=== PATIENT | female | born 1990 | race Caucasian/White ===

== ENCOUNTER 2016-11-10 18:38 | Emergency (ER) | payer MEDICAID | END 2016-11-10 22:21 | disposition home or self-care (01) | LOC: D.ER 18:38 | DX: J06.9 Acute upper respiratory infection, unspecified (principal); M51.36 Other intervertebral disc degeneration, lumbar region ==

== ENCOUNTER 2016-11-30 15:10 | Emergency (ER) | payer MEDICAID | END 2016-11-30 16:20 | disposition home or self-care (01) | LOC: D.ER 15:10 | DX: M54.5 Low back pain (principal); M54.10 Radiculopathy, site unspecified; M51.36 Other intervertebral disc degeneration, lumbar region ==

== ENCOUNTER 2017-09-14 12:04 | Emergency (ER) | payer SELFPAY ==
[2017-09-14 12:48] LABS: BASOPHILS 0.5 % (0-2); EOSINOPHILS 1.3 % (0-7); HEMATOCRIT 43.8 % (36.0-48.0); HEMOGLOBIN 14.8 g/dL (12-16); IMMATURE GRANULOCYTES 0.1 % (0-5); LYMPHOCYTES 30.3 % (15-50); MCH 29.7 pg (26.0-34.0); MCHC 33.8 g/dL (31.0-37.0); MEAN PLATELET VOLUME 10.2 fL (7.4-10.4); MONOCYTES 7.9 % (2-11); NEUTROPHILS 59.9 % (40-80); PLATELET COUNT 220 10x3/uL (130-400); RBC 4.98 10x6/uL (4.00-5.40); RDW 12.6 % (11.5-14.5); WBC 7.9 10x3/uL (4.8-10.8)
[2017-09-14 13:05] LABS: HCG SERUM NEGATIVE (NEGATIVE)
[2017-09-14 13:12] LABS: ALBUMIN 3.6 g/dL (3.4-5.0); ALKALINE PHOSPHATASE 62 U/L (46-116); ALT (SGPT) 25 U/L (10-68); BILIRUBIN - TOTAL 0.37 mg/dL (0.2-1.3); CALC OSMOLALITY 281 mosm/kg (275-300); CARBON DIOXIDE 26.8 mmol/L (21.0-32.0); CHLORIDE - SERUM 106 mmol/L (98-107); CREATININE - SERUM 0.8 mg/dL (0.6-1.3); GLUCOSE 92 mg/dL (74-106); POTASSIUM - SERUM 4.2 mmol/L (3.5-5.1); PROTEIN - SERUM 7.6 g/dL (6.4-8.2); SODIUM 142 mmol/L (136-145); UREA NITROGEN 11 mg/dL (7-18); eGFR NON AFRICAN AMERICAN 90 mL/min (90-120)
[2017-09-14 13:24] LABS: CKMB 0.2 U/L (0.0-3.6); CREATINE KINASE 47 UL (21-215); TROPONIN-I < 0.017 ng/mL (0.000-0.060)
[2017-09-14 13:39] LABS: UDS - AMPHET NEGATIVE QUAL (NEGATIVE); UDS - BARB NEGATIVE QUAL (NEGATIVE); UDS - BENZO NEGATIVE QUAL (NEGATIVE); UDS - COCAINE NEGATIVE QUAL (NEGATIVE); UDS - OPIATE NEGATIVE QUAL (NEGATIVE); UDS - PCP NEGATIVE QUAL (NEGATIVE); UDS - THC POSITIVE QUAL (NEGATIVE)
[2017-09-14 13:47] LABS: APPEARANCE CLEAR (CLEAR); BACTERIA MODERATE /hpf (NONE SEEN); BILIRUBIN NEGATIVE (NEGATIVE); COLOR YELLOW (YELLOW); EPITHELIAL CELLS 0-5 /hpf (0-5); GLUCOSE NEGATIVE (NEGATIVE); KETONE NEGATIVE (NEGATIVE); MUCUS >1+ /lpf (NONE SEEN); NITRITE NEGATIVE (NEGATIVE); PROTEIN NEGATIVE (NEGATIVE); RED CELLS - URINE OCC /hpf (0-5); UROBILINOGEN NORMAL (NORMAL); WHITE CELLS - URINE OCC /hpf (0-5)
== END 2017-09-14 14:50 | disposition home or self-care (01) ==
LOC: D.ER 12:04
PROVIDERS: Family Medicine
DX: R55 Syncope and collapse (principal); S06.0X9A Concussion with loss of consciousness of unspecified duration, initial encounter; X58.XXXA Exposure to other specified factors, initial encounter; Y93.89 Activity, other specified; Y92.029 Unspecified place in mobile home as the place of occurrence of the external cause

== ENCOUNTER 2017-10-04 09:06 | Emergency (ER) | payer BC | END 2017-10-04 10:50 | disposition home or self-care (01) | LOC: D.ER 09:06 | DX: M54.16 Radiculopathy, lumbar region (principal) ==

== ENCOUNTER 2017-11-01 23:31 | Emergency (ER) | payer SELFPAY | END 2017-11-01 23:54 | disposition home or self-care (01) | LOC: D.ER 23:31 | DX: J11.1 Influenza due to unidentified influenza virus with other respiratory manifestations (principal); F17.200 Nicotine dependence, unspecified, uncomplicated; R05 Cough ==

== ENCOUNTER 2018-01-16 19:50 | Emergency (ER) | payer SELFPAY ==
[2018-01-16 20:35] LABS: HCG URINE NEGATIVE (NEGATIVE)
== END 2018-01-17 00:09 | disposition home or self-care (01) ==
LOC: D.ER 19:50
PROVIDERS: Emergency Medicine
DX: S83.8X1A Sprain of other specified parts of right knee, initial encounter (principal); X58.XXXA Exposure to other specified factors, initial encounter; Y93.89 Activity, other specified; Y92.019 Unspecified place in single-family (private) house as the place of occurrence of the external cause; F17.200 Nicotine dependence, unspecified, uncomplicated

== ENCOUNTER 2018-04-11 11:12 | Emergency (ER) | payer BC ==
[~2018-04-11] VITALS: Ht 165.1 cm; Wt 100.0 kg
[2018-04-11 11:26] VITALS: Ht 165.1 cm; Wt 100.0 kg
[2018-04-11] MEDS ORDERED: NAPROXEN250 MG (11:35)
[2018-04-11 12:42] LABS: HCG URINE NEGATIVE (NEGATIVE)
[2018-04-11] MEDS ORDERED: HYDROCODON-ACE1 EAC7 PO (13:47)
[2018-04-11] MEDS ORDERED: CYCLOBENZAPRINE10 MG PO (13:47)
[2018-04-11 14:12] VITALS: BP 124/67
== END 2018-04-11 14:12 | disposition home or self-care (01) ==
LOC: D.ER 11:12
PROVIDERS: Family Medicine
DX: M54.5 Low back pain (principal); M25.561 Pain in right knee; W01.0XXA Fall on same level from slipping, tripping and stumbling without subsequent striking against object, initial encounter; Y93.01 Activity, walking, marching and hiking; Y92.89 Other specified places as the place of occurrence of the external cause; F17.200 Nicotine dependence, unspecified, uncomplicated

== ENCOUNTER 2018-08-26 16:47 | Emergency (ER) | payer BC ==
[~2018-08-26] VITALS: Ht 165.1 cm; Wt 84.1 kg
[~2018-08-26 16:47] MED LIST: CYCLOBENZAPRINE10 MG PO; HYDROCODON-ACE1 EAC7 PO; NAPROXEN250 MG
[2018-08-26 17:15] VITALS: Ht 165.1 cm; Wt 84.1 kg
[2018-08-26 17:45] LABS: BASOPHILS 0.4 % (0-2); EOSINOPHILS 2.5 % (0-7); HEMATOCRIT 43.7 % (36.0-48.0); IMMATURE GRANULOCYTES 0.1 % (0-5); LYMPHOCYTES 46.1 % (15-50); MCH 30.5 pg (26.0-34.0); MCHC 34.3 g/dL (31.0-37.0); MCV 88.8 fL (80.0-100.0); MEAN PLATELET VOLUME 10.2 fL (7.4-10.4); MONOCYTES 8.2 % (2-11); NEUTROPHILS 42.7 % (40-80); PLATELET COUNT 202 10x3/uL (130-400); RBC 4.92 10x6/uL (4.00-5.40); RDW 12.4 % (11.5-14.5); WBC 7.7 10x3/uL (4.8-10.8)
[2018-08-26 17:47] LABS: APPEARANCE CLEAR (CLEAR); BILIRUBIN NEGATIVE (NEGATIVE); COLOR DK YELLOW (YELLOW); GLUCOSE NEGATIVE (NEGATIVE); KETONE NEGATIVE (NEGATIVE); NITRITE NEGATIVE (NEGATIVE); PROTEIN NEGATIVE (NEGATIVE); UROBILINOGEN NORMAL (NORMAL)
[2018-08-26 17:53] LABS: EPITHELIAL CELLS 0-5 /hpf (0-5); RED CELLS - URINE 0-5 /hpf (0-5); WHITE CELLS - URINE 0-5 /hpf (0-5)
[2018-08-26 17:54] LABS: BACTERIA FEW /hpf (NONE SEEN)
[2018-08-26 17:55] LABS: HCG URINE NEGATIVE (NEGATIVE)
[2018-08-26 18:53] LABS: ALBUMIN 3.4 g/dL (3.4-5.0); ALKALINE PHOSPHATASE 59 U/L (46-116); ALT (SGPT) 26 U/L (10-68); AMYLASE - SERUM 57 U/L (25-115); BILIRUBIN - TOTAL 0.37 mg/dL (0.2-1.3); CALC OSMOLALITY 272 mosm/kg (275-300); CALCIUM 8.7 mg/dL (8.5-10.1); CARBON DIOXIDE 29.4 mmol/L (21.0-32.0); CHLORIDE - SERUM 101 mmol/L (98-107); CREATININE - SERUM 0.8 mg/dL (0.6-1.3); GLUCOSE 77 mg/dL (74-106); LIPASE 165 U/L (73-393); POTASSIUM - SERUM 3.8 mmol/L (3.5-5.1); PROTEIN - SERUM 8.2 g/dL (6.4-8.2); SODIUM 138 mmol/L (136-145); UREA NITROGEN 8 mg/dL (7-18); eGFR NON AFRICAN AMERICAN 89 mL/min (90-120)
[2018-08-26] MEDS ORDERED: TORADOL10 MG PO (21:04)
[2018-08-26] MEDS ORDERED: ZOFRAN8 MG PO (21:04)
[2018-08-26] MEDS ORDERED: OMEPRAZOLE40 MG PO (21:05)
[2018-08-26 21:49] VITALS: BP 129/74
== END 2018-08-26 21:35 | disposition home or self-care (01) ==
LOC: D.ER 16:47
PROVIDERS: Emergency Medicine
DX: R10.11 Right upper quadrant pain (principal); K80.20 Calculus of gallbladder without cholecystitis without obstruction; K21.9 Gastro-esophageal reflux disease without esophagitis; H91.91 Unspecified hearing loss, right ear; F17.200 Nicotine dependence, unspecified, uncomplicated

== ENCOUNTER 2018-09-12 06:25 | Day surgery (SDC) | payer BC ==
[2018-09-11 11:41] LABS: HEMOGLOBIN 15.7 g/dL (12-16); MCH 30.9 pg (26.0-34.0); MCHC 34.9 g/dL (31.0-37.0); MCV 88.6 fL (80.0-100.0); MEAN PLATELET VOLUME 10.1 fL (7.4-10.4); RBC 5.08 10x6/uL (4.00-5.40); RDW 12.5 % (11.5-14.5); WBC 8.2 10x3/uL (4.8-10.8)
[~2018-09-12] VITALS: Ht 165.1 cm; Wt 83.0 kg
[~2018-09-12 06:25] MED LIST changes: +OMEPRAZOLE40 MG PO; +TORADOL10 MG PO; +VALTREX500 MG PO; +ZOFRAN8 MG PO
[2018-09-12 06:45] VITALS: BP 123/85; Ht 165.1 cm; Wt 83.0 kg
[2018-09-12 09:12] LABS: HCG URINE NEGATIVE (NEGATIVE)
[2018-09-12] MEDS ORDERED: HYDROCODON-ACE1 EAC7 PO (11:38)
== END 2018-09-12 14:15 | disposition home or self-care (01) ==
LOC: D.OPS 06:25 → D.PAN 10:00 → D.OPS 10:00
PROVIDERS: Anesthesiology; Surgery
DX: K80.10 Calculus of gallbladder with chronic cholecystitis without obstruction (principal); Z01.812 Encounter for preprocedural laboratory examination

== ENCOUNTER 2018-12-06 08:41 | Emergency (ER) | payer BC ==
[~2018-12-06] VITALS: Ht 165.1 cm; Wt 79.5 kg
[2018-12-06 08:52] VITALS: Ht 165.1 cm; Wt 79.5 kg
[2018-12-06] MEDS ORDERED: AMOXICILLIN500 M1 PO (09:05)
[2018-12-06 10:05] VITALS: BP 118/77
== END 2018-12-06 10:06 | disposition home or self-care (01) ==
LOC: D.ER 08:41
DX: J02.9 Acute pharyngitis, unspecified (principal); J06.9 Acute upper respiratory infection, unspecified; R50.9 Fever, unspecified; R51 Headache; F17.200 Nicotine dependence, unspecified, uncomplicated

== ENCOUNTER 2019-02-05 10:34 | Emergency (ER) | payer MEDICAID ==
[~2019-02-05] VITALS: Ht 165.1 cm; Wt 72.7 kg
[~2019-02-05 10:34] MED LIST changes: +AMOXICILLIN500 M1 PO
[2019-02-05 10:39] VITALS: BP 120/65; Ht 165.1 cm; Wt 72.7 kg
[2019-02-05] MEDS ORDERED: FLAGYL500 MG PO (11:09)
[2019-02-05 11:16] LABS: APPEARANCE CLEAR (CLEAR); COLOR YELLOW (YELLOW); SPECIFIC GRAVITY 1.005 (1.005-1.020)
[2019-02-05 11:17] LABS: BILIRUBIN NEGATIVE (NEGATIVE); GLUCOSE NEGATIVE (NEGATIVE); KETONE NEGATIVE (NEGATIVE); NITRITE NEGATIVE (NEGATIVE); PROTEIN NEGATIVE (NEGATIVE); UROBILINOGEN NORMAL (NORMAL)
== END 2019-02-05 11:22 | disposition home or self-care (01) ==
LOC: D.ER 10:34
PROVIDERS: Family Medicine
DX: Z20.2 Contact with and (suspected) exposure to infections with a predominantly sexual mode of transmission (principal)

== ENCOUNTER 2019-11-27 10:01 | Emergency (ER) | payer OTHER ==
[~2019-11-27] VITALS: Ht 165.1 cm; Wt 79.5 kg
[~2019-11-27 10:01] MED LIST changes: +FLAGYL500 MG PO
[2019-11-27 10:21] VITALS: BP 154/81; Ht 165.1 cm; Wt 79.5 kg
[2019-11-27] MEDS ORDERED: HYDROCODON-ACE1 EA10 PO (10:46)
[2019-11-27] MEDS ORDERED: CLEOCIN HCL300 MG PO (10:47)
== END 2019-11-27 11:06 | disposition home or self-care (01) ==
LOC: D.ER 10:01
DX: K04.7 Periapical abscess without sinus (principal); S02.5XXA Fracture of tooth (traumatic), initial encounter for closed fracture

== ENCOUNTER 2020-05-15 22:40 | Emergency (ER) | payer OTHER ==
[~2020-05-15] VITALS: Ht 165.1 cm; Wt 75.0 kg
[~2020-05-15 22:40] MED LIST changes: +CLEOCIN HCL300 MG PO; +HYDROCODON-ACE1 EA10 PO
[2020-05-15 22:54] VITALS: Ht 165.1 cm; Wt 75.0 kg
[2020-05-15 23:54] VITALS: BP 119/65
== END 2020-05-15 23:55 | disposition home or self-care (01) ==
LOC: D.ER 22:40
DX: M77.11 Lateral epicondylitis, right elbow (principal); M54.9 Dorsalgia, unspecified; G89.29 Other chronic pain

== ENCOUNTER 2021-03-23 05:04 | Emergency (ER) | payer OTHER ==
[2020-08-22 02:10] VITALS: Ht 165.1 cm; Wt 84.1 kg
[~2021-03-23] VITALS: Ht 165.1 cm; Wt 84.1 kg
[~2021-03-23 05:04] MED LIST changes: +MACROBID100 MG PO; +NAPROSYN500 MG PO
[2021-03-23 05:08] VITALS: BP 147/71
== END 2021-03-23 06:25 | disposition home or self-care (01) ==
LOC: D.ER 05:04
DX: S61.216A Laceration without foreign body of right little finger without damage to nail, initial encounter (principal); W26.9XXA Contact with unspecified sharp object(s), initial encounter; Y93.9 Activity, unspecified; Y92.9 Unspecified place or not applicable